=== PATIENT | female | born 1950 | race Caucasian/White ===

== ENCOUNTER 2018-09-03 19:01 | Inpatient (IN) | payer MEDICARE ==
[2018-09-03 20:57] LABS: % BASOPHILS 0.6 % (0.0-2.0); % EOSINOPHILS 0.8 % (0.0-5.0); % LYMPHOCYTES 16.7 % (20.0-50.0); % MONOCYTES 6.8 % (2.0-10.0); % NEUTROPHILS 75.1 % (40.0-80.0); EOSINOPHILE ABSOLUTE 0.1 Th/cmm (0.1-0.4); HEMATOCRIT 42.2 % (41.0-60); LYMPHOCYTE ABSOLUTE 1.2 Th/cmm (1.5-3.0); MEAN CELL VOLUME 91.3 fl (81-100); MEAN CORPUSCULAR HEMOGLOBIN 30.3 pg (27.0-31.0); MEAN CORPUSCULAR HGB CONC 33.2 pg (28.0-36.0); MEAN PLATELET VOLUME 8.3 fl; MONOCYTE ABSOLUTE 0.5 Th/cmm (0.3-1.0); NEUTROPHILE ABSOLUTE 5.5 Th/cmm (1.8-8.0); PLATELET COUNT 196 Th/cmm (150-400); RED BLOOD COUNT 4.62 Mil/cmm (3.80-5.20); RED CELL DISTRIBUTION WIDTH 14.5 % (11.5-20.0); WHITE BLOOD COUNT 7.3 Th/cmm (4.8-10.8)
--- NOTE | 2018-09-03 20:57 | ED Physician Chart ---
ED Chief Complaint/HPI - Patient Information Date Seen:: 09/03/18 Time Seen:: 20:53 Chief Complaint:: depression History of Present Illness:: 68 yr old female with hx bipolar disorderpt of dr archibald who she called several times without answer pt had her dog drown in pool and she is so distressed Allergies:: Allergies Allergy/AdvReac Type Severity Reaction Status Date / Time No Known Allergies Allergy Verified 09/03/18 20:40 Vitals:: Vital Signs - 8 hr 09/03/18 19:20 Temp 98.6 F HR 62 RR 17 BP 118/74 O2 Sat % 97 ED Review of Systems - Review of Systems General/Constitutional: No fever, No chills, No weight loss, No weakness, No diaphoresis, No edema, No loss of appetite Skin: No skin lesions, No rash, No bruising Head: No headache, No light-headedness Eyes: No loss of vision, No pain, No diplopia ENT: No earache, No nasal drainage, No sore throat, No tinnitus Neck: No neck pain, No swelling, No thyromegaly, No stiffness, No mass noted Cardio Vascular: No chest pain, No palpitations, No PND, No orthopnea, No edema Pulmonary: No SOB, No cough, No sputum, No wheezing GI: No nausea, No vomiting, No diarrhea, No pain, No melena, No hematochezia, No constipation, No hematemesis G/U: No dysuria, No frequency, No hematuria Musculoskeletal: No bone or joint pain, No back pain, No muscle pain Endocrine: No polyuria, No polydipsia Psychiatric: Prior psych history, Depression, Anxiety, No suicidal ideation Hematopoietic: No bruising, No lymphadenopathy Allergic/Immuno: No urticaria, No angioedema Neurological: No syncope, No focal symptoms, No weakness, No paresthesia, No headache, No seizure, No dizziness, No confusion, No vertigo Family Medical History - Family Member Daughter Living Status: Still Living ED Septic Shock - . Is Septic Shock (SBP<90, OR Lactate>4 mmol\L) present?: No - <6hrs of presentation: Vital Signs: Vital Signs - 8 hr 09/03/18 19:20 Temp 98.6 F HR 62 RR 17 BP 118/74 O2 Sat % 97 ED Reassessment (Disposition) - Reassessment Reassessment:: depression adjustment disorder - Diagnosis Diagnosis:: as above - Patient Disposition Condition at Disposition:: Stable
[2018-09-03 21:18] LABS: ALB/GLOB RATIO 1.7 (1.0-1.8); ALKALINE PHOSPHATASE 44 U/L (34-104); ANION GAP 12.9 (7.0-16.0); BILIRUBIN,TOTAL 0.8 mg/dL (0.3-1.0); BUN - UREA NITROGEN 26 mg/dL (7-25); CALCIUM SERUM 9.2 mg/dL (8.6-10.3); CARBON DIOXIDE 24.7 mEq/L (21.0-31.0); CHLORIDE 105 mEq/L (98-107); GFR AFRICAN-AMERICAN > 60.0 ml/min (>90); GLUCOSE 108 mg/dL (70-105); POTASSIUM SERUM 3.6 mEq/L (3.5-5.1); SGOT 12 U/L (13-39); SGPT/ALT 21 U/L (7-52); SODIUM SERUM 139 mEq/L (136-145); TOTAL PROTEIN,SERUM 6.4 gm/dL (6.0-8.3)
[2018-09-03 22:12] LABS: URINE SOURCE CLEAN C
[2018-09-03 22:18] LABS: URINE BILIRUBIN NEGATIVE (NEGATIVE); URINE BLOOD NEGATIVE (NEGATIVE); URINE GLUCOSE (UA) NEGATIVE (NEGATIVE); URINE KETONE NEGATIVE (NEGATIVE); URINE LEUKOCYTE ESTERASE MODERATE (NEGATIVE); URINE NITRATE NEGATIVE (NEGATIVE); URINE PH 5.5 (4.6 - 8.0); URINE PROTEIN NEGATIVE (NEGATIVE); URINE UROBILINOGEN 0.2 E.U./dL (0.2 - 1.0)
[2018-09-03 22:26] LABS: URINE CLARITY HAZY (CLEAR); URINE COLOR YELLOW; URINE MICROSCOPIC INDICATED? YES
[2018-09-03 22:31] LABS: URINE RBC 0-2 /hpf (0-5)
[2018-09-03 22:32] LABS: URINE BACTERIA FEW /hpf (NONE SEEN); URINE EPITHELIAL CELLS MODERATE /lpf (FEW)
[2018-09-04] MEDS ORDERED: Maalox 30 mL Cup PO PRN (14:45)
[2018-09-04] MEDS ORDERED: Magnesium Hydroxide (MOM) 30 mL UDC PO PRN (14:45)
[2018-09-04 15:24] VITALS: BP 147/60
[2018-09-04 15:41] LABS: CHOLESTEROL 200 mg/dL (<200); HDL -HIGH DENSITY LIPOPROTEIN 74 mg/dL (23-92); TRIGLYCERIDES 106 mg/dL (<150)
[2018-09-04] MEDS ORDERED: Non-Formulary Item 1 EA (Gabapentin [Gabapentin] 600 MG) PO SCH (17:00)
[2018-09-04] MEDS ORDERED: Non-Formulary Item 1 EA (Hydrocodone/Acetaminophen [Hydrocodone-Acetamin 7.5-325] 1 TAB) PO SCH (21:00)
[2018-09-04] MEDS ORDERED: GABAPENTIN 1200 MG PO SCH (21:00)
[2018-09-05] MEDS: Hydrocodone/APAP 5mg/325mg Tab PO SCH ×3 (08:53→21:10)
[2018-09-05] MEDS: Multivitamin Tab PO SCH (08:54)
[2018-09-05] MEDS: Oxybutynin Chloride 5 mg ER Tab PO SCH (08:54)
[2018-09-05] MEDS ORDERED: SUMATRIPTAN SUCCINATE 100 MG PO SCH (09:00)
--- NOTE | 2018-09-05 10:04 | History & Physical ---
ADMIT DATE: 09/04/2018 REQUESTING PHYSICIAN: Dr. Cassie Hinkle. REASON: Medical evaluation. HISTORY OF PRESENT ILLNESS: A 68-year-old female with history of migraine headache, hyperlipidemia, chronic pain, anxiety, depression, admitted by Dr. Hinkle with legal state of 5150 after the patient report a statement that she wanted to kill herself. PAST MEDICAL HISTORY: Remarkable for, 1. Migraine headache. 2. Hyperlipidemia. 3. Depression. 4. Degenerative joint disease. 5. Chronic pain syndrome. MEDICATIONS AT HOME: Duloxetine, Topamax, Prozac, [place], and atorvastatin. ALLERGIES: The patient is not allergic to medication. SOCIAL HISTORY: She lives with her daughter. The patient has no history of smoking cigarette, alcohol, or drug use. Her primary care physician is Dr. Evangelist William. FAMILY MEDICAL HISTORY: Remarkable for hypertension, hyperlipidemia and coronary artery disease. REVIEW OF SYSTEMS: The patient does complain of lower back pain as well as pain at the lateral aspect of the left flank. The patient otherwise denies any headache, blurred vision, double vision, dysphagia, odynophagia, runny nose, stuffy nose, fever, chills, cough, chest pain, shortness of breath, palpitation, dizziness, nausea, vomiting, diarrhea, dysuria, hematuria, hematochezia or melena. No seizure or syncopal episode. PHYSICAL EXAMINATION: GENERAL: A 68-year-old, alert, awake, lying in the bed without any acute distress. VITAL SIGNS: Temperature 98, pulse is 64, respiratory rate 18, blood pressure 110/60. HEENT: Normocephalic, atraumatic. Extraocular muscles are intact. Tongue was pink and coated. Poor dentition noted. No oral lesion, no exudate. No sinus tenderness. NECK: Supple, no JVD, no hepatojugular reflex. No lymphadenopathy, thyromegaly, carotid bruit. HEART: Both heart sounds are regular. No S3, no S4, no murmur. CHEST: Lung equal in expansion, no expiratory wheezing. ABDOMEN: Soft. No guarding, no rigidity. Bowel sounds present. No palpable mass. EXTREMITIES: No edema, no cyanosis, no clubbing. Peripheral pulses +2. No calf tenderness noted. BACK: Remarkable kyphoscoliosis with left-sided renal angle tenderness noted. Bilateral sacroiliac joint tenderness also noted. NEUROLOGIC: Alert, awake and oriented to time, place, person. Cranial nerves 2-12 are intact. Power in upper and lower extremities are 5+. Sensation to touch intact. Babinski's in both toes are going down. No cerebral sign. AVAILABLE DIAGNOSTIC DATA: Has been reviewed. CLINICAL IMPRESSION: 1. Left flank pain, etiology needs to be determined. 2. Kyphoscoliosis. 3. Lower back pain. 4. Chronic pain syndrome. 5. Hyperlipidemia. 6. Anxiety and depression. 7. Psychotic disorder exacerbation. 8. Migraine headache. 9. Degenerative joint disease. PLAN: 1. Psychiatric evaluation and management, deferred to psychiatrist. 2. Pain management. 3. Appropriate home medicine reconciliation. 4. General nursing care. 5. X-ray of the lumbosacral spine for evaluation of lower back pain. 6. Renal ultrasound for evaluation of left flank pain. 7. Age appropriate health maintenance discussed. 8. We will continue to follow this patient during the stay in the hospital. 9. Care plan reviewed and discussed with staff. [facility]# [id number]
--- NOTE | 2018-09-05 10:58 | Diagnostic Imaging Report ---
Lumbar spine (3 views) HISTORY: Pain Alignment is normal. Diffuse degenerative changes are noted with spur formation noted about the endplates of all vertebrae. Narrowing of the L4-5 and L2-3 interspaces. No acute abnormalities. No fractures. IMPRESSION: 1. Diffuse degenerative changes 2. No acute amenities
--- NOTE | 2018-09-05 13:25 | Diagnostic Imaging Report ---
Exam: Ultrasound summation kidneys. HISTORY: Back pain Findings: Real-time ultrasound examination of kidneys bilaterally was performed multiple planes. The study demonstrates normal echogenicity kidneys bilaterally without obstructive uropathy. Right kidney measures 11.2 x 5.3 x 5.9 submitted diameter containing 1.4 cm cyst in the right upper pole Small nonobstructing 8 mm right renal calculus is noted Left kidney measures 9.8 x 5.9 x 5.2 cm diameter. The uterine bladder is not distended. IMPRESSION: Small 1.4 cm right renal cyst. 8 mm nonobstructing right renal calculus. Contracted urinary bladder.
--- NOTE | 2018-09-06 05:19 | Psychiatric Evaluation ---
DATE OF SERVICE: PHYSICIAN: Dr. Hinkle. CHIEF COMPLAINT: 5150 hold for danger to self. HISTORY OF PRESENT ILLNESS: The patient is a 68-year-old female who is well known to me for treatment of depression in my office. The patient does not feel herself after she found "my dog in the pool." Because of this, she was planning to overdose on pills. The patient said that "her dog was her therapy dog and she was the one that she was talking to." She has been feeling hopeless and helpless since the dog 3 days ago and that is why she was planning to overdose on pills. The patient has history of depression, but no attempt. PAST PSYCHIATRIC HISTORY: The patient has history of depression, has been under my care as an outpatient. PAST MEDICAL HISTORY: The patient has arthritis and hypercholesterolemia. CHEMICAL DEPENDENCY HISTORY: The patient does not smoke or use any street drugs and she drinks socially. FAMILY PSYCHIATRIC AND CHEMICAL DEPENDENCY HISTORY: The patient denied. SOCIAL HISTORY: The patient is . She has 4 daughters and she lives with one of her daughters and she was planning to move to [place] to live with another daughter. The patient said that she had second support dog that is alive and with her. The patient denied any legal issues or abuse issues. ALLERGIES: No known allergies. MENTAL STATUS EXAMINATION: The patient appears her stated age. Sad affect. In a depressed mood. Thought processes are mainly goal directed. The patient denies any auditory or visual hallucinations or delusions. Currently, the patient denied any suicidal or homicidal ideation. The patient is alert and oriented to time, place, person and situation. Intact immediate, recent and remote memories. Fair insight. Poor judgment. Seems to be of average intelligence based on her verbal ability. ASSESSMENT: PRIMARY DIAGNOSIS: Major depression, severe, recurrent, without psychotic features. MEDICAL DIAGNOSIS: Hypercholesterolemia. TREATMENT PLAN: We will continue Cymbalta, but we will increase Prozac to 40 mg every day. We will start individual as well as milieu therapy. We will monitor her condition because of her suicidal ideation and we will place the patient on 5250 hold. Also, we will check family support. ESTIMATED LENGTH OF STAY: 5-7 days. PATIENT'S STRENGTH AND WEAKNESSES: The patient is motivated for treatment and cooperative with her treatment plan. Weaknesses are her ineffective coping and suicidal ideation. AFTER DISCHARGE PLAN: Outpatient treatment and followup will continue as an outpatient. CRITERIA FOR DISCHARGE: The patient will not be depressed or suicidal and will stabilize on psychotropic medications and will establish outpatient treatment plans. The patient also will return to her daughter. [facility]# [id number]
[2018-09-06] MEDS: Hydrocodone/APAP 5mg/325mg Tab PO SCH (08:32)
[2018-09-06] MEDS: Multivitamin Tab PO SCH (08:33)
[2018-09-06] MEDS: Oxybutynin Chloride 5 mg ER Tab PO SCH (08:34)
--- NOTE | 2018-09-07 04:52 | Progress Notes ---
DATE: 09/06/2018 FOLLOWUP PROGRESS NOTE COVERING FOR: Dr. Hinkle. PROGRESS ON THE UNIT: Case was discussed with staff of the patient, reviewed records. This is a 68-year-old female who is admitted on 09/04/2018 on a hold for danger to self. The patient is a well-known case to Dr. Hinkle as she has been seeing her in his office. The patient did not feel herself. She found her dog in the pool . Because of this, she was planning to overdose on pills. The patient said that her dog was her therapy dog and she was the one that was talking to. She has been feeling hopeless and helpless since the dog 3 days prior to admission and that is why she was planning to overdose. The patient is with a history of depression but no attempt. Dr. Hinkle apparently gave an order for the patient's discharge today. her hold expires today I met with the patient and her 2 daughters. She lives with one of her daughters that was there and apparently she never tried to harm herself. She reported that she no longer has any intent to harm herself or anybody. She denies any auditory or visual hallucinations. She never tried to harm herself. The family and the patient feel strongly that she would be fine and okay, does not meet criteria for further inpatient treatment. no citeria to extend the hold, She is on Prozac 40 mg daily and Cymbalta 60 mg daily with no side effects, no sedation, no nausea. The patient will be discharged to a lesser level of care. She has an appointment with Dr. Hinkle on saturday in 2days to follow up with him that he gave her yesterday. The patient will be discharged to a lesser level of care. [facility]# [id number]
== END 2018-09-06 14:25 | disposition home or self-care (01) | DRG 885 ==
LOC: ER 19:01 → GERO 09-04 14:02
PROVIDERS: ADMIT Psychiatry & Neurology Psychiatry; ATTEND Psychiatry & Neurology Psychiatry
DX: F23 Brief psychotic disorder (principal); F32.9 Major depressive disorder, single episode, unspecified; F43.20 Adjustment disorder, unspecified; G43.909 Migraine, unspecified, not intractable, without status migrainosus; E78.5 Hyperlipidemia, unspecified; G89.4 Chronic pain syndrome; M19.90 Unspecified osteoarthritis, unspecified site; M41.9 Scoliosis, unspecified; F41.9 Anxiety disorder, unspecified
CPT/HCPCS: 36415-UA; 72110-TC; 76770-TC; 80053-TC; 80061-TC; 81001-TC; 83036-90; 85025-TC; 87086-90